=== PATIENT | male | born 1995 | race Caucasian/White ===

== ENCOUNTER 2016-12-26 14:07 | Emergency (ER) | payer BC, OTHER ==
[~2016-12-26] VITALS: Ht 167.6 cm; Wt 90.0 kg
[~2016-12-26 14:07] MED LIST: ADDE10XR PO; CIPR500T4 PO; LAMI25TA3 PO; META800 PO; SERT100 PO
[2016-12-26 14:21] VITALS: BP 137/76; PULSE 89; RESP 16; TEMP 97.7; O2SAT 98
[2016-12-26 14:56] VITALS: BP 136/67; PULSE 130; TEMP 97.5; O2SAT 100
[2016-12-26 15:02] LABS: AUTOMATED NEUTROPHIL # 2.3 TH/MM3 (1.8-7.7); BASOPHIL % 0.6 % (0.0-2.0); EOSINOPHIL # 0.3 TH/MM3 (0-0.4); HEMATOCRIT 50.5 % (39.0-51.0); HEMO FLAGS DIFF FINAL; LYMPH % 37.5 % (9.0-44.0); LYMPHOCYTE # 1.9 TH/MM3 (1.0-4.8); MEAN CELL VOLUME 81.2 FL (80.0-100.0); MEAN CORPUSCULAR HEMOGLOBIN 26.4 PG (27.0-34.0); MEAN CORPUSCULAR HGB CONC 32.5 % (32.0-36.0); MONO % 10.1 % (0.0-8.0); NEUT % 45.8 % (16.0-70.0); PLATELET COUNT 281 TH/MM3 (150-450); RED BLOOD COUNT 6.23 MIL/MM3 (4.50-5.90); WHITE BLOOD COUNT 5.1 TH/MM3 (4.0-11.0)
[2016-12-26 15:32] LABS: ALT (GPT) 66 U/L (9-52); ANION GAP 11 MEQ/L (5-15); AST (GOT) 64 U/L (15-39); BICARBONATE 22.9 MEQ/L (21.0-32.0); BLOOD UREA NITROGEN 5 MG/DL (7-18); CHLORIDE 103 MEQ/L (98-107); GLOMERULAR FILTRATION RATE 102 ML/MIN (>89); POTASSIUM 4.7 MEQ/L (3.5-5.1); SODIUM (NA) 137 MEQ/L (136-145)
[2016-12-26 15:33] LABS: ALKALINE PHOSPHATASE 72 U/L (45-117); TOTAL BILIRUBIN ADULT 0.4 MG/DL (0.2-1.0)
[2016-12-26 15:38] LABS: AMPHETAMINE, URINE POS (NEG); BARBITURATES, URINE NEG (NEG); COCAINE, URINE POS (NEG)
[2016-12-26] MEDS ORDERED: LURA1TAB2 PO (16:40)
[2016-12-26] MEDS ORDERED: LAMO150 PO (16:41)
--- NOTE | 2016-12-26 17:16 | PD ---
HPI Chief Complaint: Psychiatric Symptoms Time Seen by Provider: 17:10 Travel History International Travel<30 days: No Contact w/Intl Traveler<30days: No Traveled to known affect area: No History of Present Illness HPI 21-year-old male that presents to the ED for evaluation of psych. Patient was Burk acted by police after apparently he was confronted by family secondary to possible substance abuse. Patient has a history of bipolar disorder. Patient states that his been abusing meth by snorting and smoking it. He states that he is compliant with the medications are given to him for his bipolar disorder. Per patient he does this recreationally. He hasn't used since yesterday. Patient has been here before for psychiatric illness. Denies any abdominal pain. No nausea or vomiting. No medical symptoms of any kind. Denies any suicidal or homicidal ideation. No allergies to medication. No pain of any kind. Denies any IV drug abuse. Symptoms are moderate. Patient has been abusing drugs for a long time. PFSH Past Medical History Bipolar Disorder: Yes (Per pt.) Patient Takes Glucophage: No Diminished Hearing: No Psychiatric: Yes (Bipolar Disorder per pt.) Integumentary: Yes (ACNE) Immunizations Current: Yes Tetanus Vaccination: < 5 Years ?: Not Social History Alcohol Use: No (Pt denies.) Tobacco Use: No (Pt denies.) Substance Use: Yes (Meth, Cocaine - states mostly just Meth) Allergies-Medications (Allergen,Severity, Reaction): Coded Allergies: No Known Allergies (Verified , 12/26/16) Reported Meds & Prescriptions Reported Meds & Active Scripts Active Reported Lamictal (Lamotrigine) 150 Mg Tab 100 Mg PO BID Latuda (Lurasidone) 60 Mg Tab 120 Mg PO DAILY Review of Systems General / Constitutional: No: Fever, Chills, Weight Gain, Weight Loss, Other Eyes: No: Diploplia, Blurred Vision, Photophobia, Drainage, Redness, Foreign Body Sensation, Pain, Tearing, Blind Spots, Visual changes, Blindness, Other HENT: No: Headaches, Vertigo, Lightheadedness, Sore Throat, Rhinitis, Rhinorrhea, Congestion, Nosebleed, Neck Stiffness, Neck Pain, Masses, Gingival Bleeding, Dental Difficulties, Ear Discharge, Earache, Other Cardiovascular: No: Chest Pain or Discomfort, Palpitations, Irregular Rhythm, Tachycardia, Diaphoresis, Syncope, Dyspnea on exertion, Varicosities, Edema, Cyanosis, Varicosities, Phlebitis, Claudication, Other Respiratory: No: Cough, Shortness of Breath, Wheezing, Sneezing, Orthopnea, Hemoptysis, Stridor, Night Sweats, Pleuritic Pain, Other Gastrointestinal: No: Nausea, Vomiting, Diarrhea, Abdominal Pain, Hematemesis, Hematochezia, Constipation, Changes in Bowel Habits, Indigestion, Dysphagia, Loss of Appetite, Other Genitourinary: No: Urgency, Frequency, Dysuria, Nocturia, Hematuria, Decreased Urinary Output, Oliguria, Hesitancy, Dribbling, Incontinence, Pelvic Pain, Flank Pain, Dyspareunia, Discharge, Dysmenorrhea, Menorrhagia, Metorrhagia, Vaginal Bleeding, Other Musculoskeletal: No: Myalgias, Arthralgias, Limited ROM, Weakness, Cramping, Edema, Pain, Atrophy, Other Skin: No Rash, No Itching, No Dryness, No Lumps, No Hives, No Change in Pigmentation, No Change in nails, No Alopecia, No Lesions, No Breast Lumps, No Breast Tenderness, No Breast Swelling, No Other Neurologic: No: Weakness, Dizziness, Syncope, Focal Abnormalities, Coordination Problem, Tremor, Ataxia, Headache, Change in Mentation, Slurred Speech, Paresthesia, Incontinence, Seizures, Sensory Disturbance, Other Psychiatric: Positive: Mood Disorder, Substance Abuse, No: Anxiety, Depression , Suicidal Ideations, Disorder of Thought, Homicidal Ideation, Other Endocrine: No: Heat Intolerance, Cold Intolerance, Polyuria, Polydipsia, Other Hematologic/Lymphatic: No: Easy Bruising, Lymph Node Enlargement, Other Physical Exam Narrative GENERAL: SKIN: Warm and dry. HEAD: Atraumatic. Normocephalic. EYES: Pupils equal and round. No scleral icterus. No injection or drainage. ENT: No nasal bleeding or discharge. Mucous membranes pink and moist. Tongue is midline. No uvula deviation. NECK: Trachea midline. No JVD. CARDIOVASCULAR: Regular rate and rhythm. No murmurs, S3, S4. RESPIRATORY: No accessory muscle use. Clear to auscultation. Breath sounds equal bilaterally. GASTROINTESTINAL: Abdomen soft, non-tender, nondistended. Hepatic and splenic margins not palpable. MUSCULOSKELETAL: Extremities without clubbing, cyanosis, or edema. No obvious deformities. Full range of motion of the upper and lower extremities bilaterally. 2+ pulses bilaterally. NEUROLOGICAL: Awake and alert. No obvious cranial nerve deficits. Motor grossly within normal limits. Five out of 5 muscle strength in the arms and legs. Normal speech. PSYCHIATRIC: Appropriate mood and affect; insight and judgment normal. Data Data Last Documented VS Vital Signs Date Time Temp Pulse Resp B/P Pulse Ox O2 Delivery O2 Flow Rate FiO2 12/26/16 14:56 97.5 130 136/67 100 12/26/16 14:21 16 Orders Complete Blood Count With Diff (12/26/16 14:28) Comprehensive Metabolic Panel (12/26/16 14:28) Psych Screen (12/26/16 14:28) Drug Screen, Random Urine (12/26/16 14:28) Alcohol (Ethanol) (12/26/16 14:28) Diet Regular Basic (12/26/16 Dinner) Labs Laboratory Tests Test 12/26/16 12/26/16 14:24 14:27 White Blood Count 5.1 TH/MM3 Red Blood Count 6.23 MIL/MM3 Hemoglobin 16.4 GM/DL Hematocrit 50.5 % Mean Corpuscular Volume 81.2 FL Mean Corpuscular Hemoglobin 26.4 PG Mean Corpuscular Hemoglobin 32.5 % Concent Red Cell Distribution Width 16.0 % Platelet Count 281 TH/MM3 Mean Platelet Volume 8.5 FL Neutrophils (%) (Auto) 45.8 % Lymphocytes (%) (Auto) 37.5 % Monocytes (%) (Auto) 10.1 % Eosinophils (%) (Auto) 6.0 % Basophils (%) (Auto) 0.6 % Neutrophils # (Auto) 2.3 TH/MM3 Lymphocytes # (Auto) 1.9 TH/MM3 Monocytes # (Auto) 0.5 TH/MM3 Eosinophils # (Auto) 0.3 TH/MM3 Basophils # (Auto) 0.0 TH/MM3 CBC Comment DIFF FINAL Differential Comment Sodium Level 137 MEQ/L Potassium Level 4.7 MEQ/L Chloride Level 103 MEQ/L Carbon Dioxide Level 22.9 MEQ/L Anion Gap 11 MEQ/L Blood Urea Nitrogen 5 MG/DL Creatinine 0.94 MG/DL Estimat Glomerular Filtration 102 ML/MIN Rate Random Glucose 80 MG/DL Calcium Level 8.8 MG/DL Total Bilirubin 0.4 MG/DL Aspartate Amino Transf 64 U/L (AST/SGOT) Alanine Aminotransferase 66 U/L (ALT/SGPT) Alkaline Phosphatase 72 U/L Total Protein 7.5 GM/DL Albumin 3.5 GM/DL Ethyl Alcohol Level LESS THAN 3 MG/DL Urine Opiates Screen NEG Urine Barbiturates Screen NEG Urine Amphetamines Screen POS Urine Benzodiazepines Screen NEG Urine Cocaine Screen POS Urine Cannabinoids Screen NEG MDM Medical Decision Making Medical Screen Exam Complete: Yes Emergency Medical Condition: Yes Medical Record Reviewed: Yes Interpretation(s) CBC & BMP Diagram 12/26/16 14:24 Tox screen positive for amphetamines and cocaine LFTs within normal limits. Differential Diagnosis Depression versus suicidal ideation versus anxiety versus adjustment disorder versus mood disorder versus bipolar disorder versus schizophrenia versus paranoid disorder versus psychosis versus substance abuse versus alcohol abuse versus alcohol induced psychosis versus homicidality addition versus cutting versus personality disorder Narrative Course 21-year-old male that presents to the ED for evaluation of psych. Patient was properly examined and was found to have signs and symptoms consistent with appears to be psychiatric illness. Substance abuse noted. Patient will be medically clear. Okay to be seen by psych. Mental health screening was discussed with the patient. Diagnosis Primary Impression: Substance abuse Additional Impression: Bipolar 1 disorder Luis Felipe Rose Dec 26, 2016 17:16
[2016-12-26 18:04] VITALS: PULSE 83; RESP 18; O2SAT 99
[2016-12-26 18:30] VITALS: BP 123/63; PULSE 86; RESP 18; TEMP 98; O2SAT 100
[2016-12-26 22:24] VITALS: BP 110/54; PULSE 83; RESP 19; O2SAT 98
[2016-12-27 02:08] VITALS: BP 116/63; PULSE 84; RESP 18
[2016-12-27 06:25] VITALS: BP 148/78; PULSE 75; RESP 18; O2SAT 98
[2016-12-27 10:55] VITALS: BP 141/70; PULSE 86; RESP 18; O2SAT 97
--- NOTE | 2016-12-27 14:49 | EKG ---
Date Performed: 12/26/2016 Time Performed: 18:29:57 PTAGE: 21 years EKG: Sinus rhythm WITH SHORT [place] INTERVAL POSSIBLE RIGHT VENTRICULAR CONDUCTION DELAY NONSPECIFIC ST & T-WAVE ABNORMALI TY BORDERLINE ECG NO PREVIOUS TRACING DOCTOR: Vannesa Rodriges Interpretating Date/Time 12/27/2016 14:48:06
[2016-12-27 15:11] VITALS: BP 141/64; PULSE 85; RESP 18; O2SAT 98
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
[2016-12-27 18:48] VITALS: BP 130/60; PULSE 81; RESP 18
== END 2016-12-27 19:47 | disposition home or self-care (01) ==
LOC: NEPJ 14:07
DX: F19.20 Other psychoactive substance dependence, uncomplicated (principal); F31.9 Bipolar disorder, unspecified; F14.10 Cocaine abuse, uncomplicated
CPT/HCPCS: 80053; 80307; 85025; 93005; 99284